=== PATIENT | female | born 1950 | race Caucasian/White ===

== ENCOUNTER 2016-12-06 19:56 | Emergency (ER) | payer MEDICARE, BC ==
[2016-12-06] MEDS ORDERED: NS 0.9% 1000 ML* 1,000 ML IV SCH (20:30)
[2016-12-06] MEDS ORDERED: Nitroglycerin TAB 0.4 MG* 0.4 MG TAB SL ONE (20:46)
[2016-12-06] MEDS ORDERED: Aspirin Low Dose CHEW TAB* 81 MG PO ONE (20:46)
[2016-12-06 20:47] LABS: Hematocrit 40 % (35-47); Hemoglobin 13.5 g/dl (12.0-16.0); Mean Corpuscular HGB Conc 34 g/dl (31-36); Mean Corpuscular Hemoglobin 30 pg (27-31); Mean Corpuscular Volume 88 fL (80-97); Mean Platelet Volume 8 um3 (7.4-10.4); Red Blood Count 4.58 10^6/ul (4.0-5.4); Red Cell Distribution Width 13 % (10.5-15); White Blood Count 7.3 10^3/ul (3.5-10.8)
--- NOTE | 2016-12-06 20:58 | RAD ---
INDICATION: Chest pain COMPARISON: December 28, 2014 TECHNIQUE: An AP portable view obtained at 2056 hours is submitted. FINDINGS: Bones/Soft Tissues: There are no acute bony findings. Cardiomediastinal: The cardiomediastinal silhouette is normal. Lungs: There are no infiltrates. Pleura: There are no pleural effusions. Other: None IMPRESSION: NO ACTIVE DISEASE.
[2016-12-06 21:01] LABS: Albumin 4.1 g/dL (3.2-5.2); BUN/Creatinine Ratio 25.4 (8-20); C Reactive Protein 1.06 mg/L (< 5.00); Calcium 9.2 mg/dL (8.6-10.3); EGFR African American 105.3 (>60); EGFR Non-African American 81.9 (>60); Globulin 2.1 g/dL (2-4); Magnesium 2.2 mg/dL (1.9-2.7); Potassium 3.8 mmol/L (3.5-5.0); Total Bilirubin 0.5 mg/dL (0.2-1.0); Total Protein 6.2 g/dL (6.4-8.9)
[2016-12-06 21:14] LABS: TSH (Thyroid Stimulating Horm) 2.23 mcIU/mL (0.34-5.60)
[2016-12-06] MEDS ORDERED: Iohexol 350* (CONTRAST) 500 ML MDV IV ONE (22:04)
[2016-12-06] MEDS ORDERED: Ketorolac INJ* 30 MG/ML 1 ML VIAL IV ONE (23:22)
--- NOTE | 2016-12-07 00:37 | ED ---
Tye Warner Nikita, scribed for Vivek Fonseca MD on 12/06/16 at 2046 . HPI Chest Pain - HPI Summary HPI Summary: This patient is a 66 year old F presenting to ED with a chief complaint of left- sided CP since 0700. The CC is described as constant, non-radiating, and squeezing. Pt reports that the pain seems to be like a band across the L side of her chest. The patient rates the pain 7/10 in severity at its worse. Symptoms aggravated by movement, palpation, and inspiration. Symptoms alleviated by nothing (took Aleve to no relief). Patient denies abdominal pain, nausea, vomiting, SOB, diaphoresis, and swelling. Pt denies recent sickness. Pt believes that the pain is muscular. PMHx of HTN. Denies Hx of HLD. - History of Current Complaint Chief Complaint: EDChestPainROMI Time Seen by Provider: 12/06/16 20:28 Hx Obtained From: Patient Onset/Duration: Started Hours Ago - 0700, Still Present Timing: Constant Initial Severity: Moderate Current Severity: Moderate Pain Intensity: 7 Pain Scale Used: 0-10 Numeric Chest Pain Location: Discrete at: - L sided Chest Pain Radiates: No Character: Pressure/Squeezing Aggravating Factor(s): Movement, Other: - palpation and inspiration Alleviating Factor(s): Nothing - took Aleve to no relief Associated Signs and Symptoms: Positive: Other: - Patient denies abdominal pain , nausea, vomiting, SOB, diaphoresis, and swelling. - Allergy/Home Medications Allergies/Adverse Reactions: Allergies Allergy/AdvReac Type Severity Reaction Status Date / Time Acetaminophen [From Percocet] AdvReac Intermediate Vomiting Verified 08/18/16 12 :54 Meperidine [From Demerol HCl] AdvReac Intermediate Vomiting Verified 08/18/16 12 :54 Oxycodone [From Percocet] AdvReac Intermediate Vomiting Verified 08/18/16 12:54 PMH/Surg Hx/FS Hx/Imm Hx Endocrine/Hematology History: Reports: Other Endocrine/Hematological Disorders - NEGATIVE: HLD Cardiovascular History: Reports: Hx Hypertension Denies: Hx Coronary Artery Disease GI History: Reports: Hx Gastroesophageal Reflux Disease Infectious Disease History: No Infectious Disease History: Denies: History Other Infectious Disease, Traveled Outside the [place] in Last 30 Days - Family History Known Family History: Positive: Hypertension, Diabetes - Social History Alcohol Use: Occasionally Substance Use Type: Reports: None Smoking Status (MU): Never Smoked Tobacco Review of Systems Negative: Skin Diaphoresis Positive: Chest Pain - L sided Negative: Shortness Of Breath Negative: Abdominal Pain, Vomiting, Nausea Positive: Other - swelling All Other Systems Reviewed And Are Negative: Yes Physical Exam - Summary Physical Exam Summary: General: well-appearing, no pain distress Skin: warm, color reflects adequate perfusion, dry Head: normal Eyes: EOMI, MAGO ENT: normal Neck: supple, nontender Respiratory: CTA, breath sounds present Cardiovascular: RRR Abdomen: soft, nontender Bowel: present Musculoskeletal: strength/ROM intact, mildly tender on L sternal border Neurological: normal, sensory/motor intact, A&O x3 Psychological: affect/mood appropriate Triage Information Reviewed: Yes Vital Signs On Initial Exam: Initial Vitals Temp Pulse Resp BP Pulse Ox 98.6 F 76 20 151/87 96 12/06/16 20:00 12/06/16 20:00 12/06/16 20:00 12/06/16 20:00 12/06/16 20:00 Vital Signs Reviewed: Yes - Maicol Coma Scale Coma Scale Total: 15 Diagnostics - Vital Signs Vital Signs Temp Pulse Resp BP Pulse Ox 12/06/16 20:31 68 11 134/87 96 12/06/16 20:26 71 11 98 12/06/16 20:22 98.9 F 73 16 134/87 96 12/06/16 20:00 98.6 F 76 20 151/87 96 - Laboratory Lab Results: Lab Results 12/06/16 12/06/16 12/06/16 Range/Units 20:36 20:36 20:36 WBC (3.5-10.8) 10^3/ul RBC (4.0-5.4) 10^6/ul Hgb (12.0-16.0) g/dl Hct (35-47) % MCV (80-97) fL MCH (27-31) pg MCHC (31-36) g/dl RDW (10.5-15) % Plt Count (150-450) 10^3/ul MPV (7.4-10.4) um3 Neut % (Auto) (38-83) % Lymph % (Auto) (25-47) % Wright % (Auto) (1-9) % Eos % (Auto) (0-6) % Baso % (Auto) (0-2) % Absolute Neuts (auto) (1.5-7.7) 10^3/ul Absolute Lymphs (auto) (1.0-4.8) 10^3/ul Absolute Monos (auto) (0-0.8) 10^3/ul Absolute Eos (auto) (0-0.6) 10^3/ul Absolute Basos (auto) (0-0.2) 10^3/ul Absolute Nucleated RBC 10^3/ul Nucleated RBC % INR (Anticoag Therapy) 0.90 (0.89-1.11) APTT 30.2 (26.0-36.3) seconds D-Dimer, Quantitative < 200 (Less Than 230) ng/mL Sodium 138 (133-145) mmol/L Potassium 3.8 (3.5-5.0) mmol/L Chloride 105 (101-111) mmol/L Carbon Dioxide 27 (22-32) mmol/L Anion Gap 6 (2-11) mmol/L BUN 18 (6-24) mg/dL Creatinine 0.71 (0.51-0.95) mg/dL Est GFR ( Amer) 105.3 (>60) Est GFR (Non-Af Amer) 81.9 (>60) BUN/Creatinine Ratio 25.4 H (8-20) Glucose 118 H (70-100) mg/dL Lactic Acid (0.5-2.0) mmol/L Calcium 9.2 (8.6-10.3) mg/dL Magnesium 2.2 (1.9-2.7) mg/dL Total Bilirubin 0.50 (0.2-1.0) mg/dL AST 21 (13-39) U/L ALT 18 (7-52) U/L Alkaline Phosphatase 78 (34-104) U/L Total Creatine Kinase 102 (10-223) U/L CK-MB (CK-2) 2.9 (0.6-6.3) ng/mL Troponin I 0.00 (<0.04) ng/mL C-Reactive Protein 1.06 (< 5.00) mg/L B-Natriuretic Peptide 26 ( - 100) pg/mL Total Protein 6.2 L (6.4-8.9) g/dL Albumin 4.1 (3.2-5.2) g/dL Globulin 2.1 (2-4) g/dL Albumin/Globulin Ratio 2.0 (1-3) Lipase 19 (11.0-82.0) U/L TSH 2.23 (0.34-5.60) mcIU/mL 12/06/16 12/06/16 Range/Units 20:36 20:36 WBC 7.3 (3.5-10.8) 10^3/ul RBC 4.58 (4.0-5.4) 10^6/ul Hgb 13.5 (12.0-16.0) g/dl Hct 40 (35-47) % MCV 88 (80-97) fL MCH 30 (27-31) pg MCHC 34 (31-36) g/dl RDW 13 (10.5-15) % Plt Count 249 (150-450) 10^3/ul MPV 8 (7.4-10.4) um3 Neut % (Auto) 59.3 (38-83) % Lymph % (Auto) 26.2 (25-47) % Wright % (Auto) 9.1 H (1-9) % Eos % (Auto) 4.8 (0-6) % Baso % (Auto) 0.6 (0-2) % Absolute Neuts (auto) 4.3 (1.5-7.7) 10^3/ul Absolute Lymphs (auto) 1.9 (1.0-4.8) 10^3/ul Absolute Monos (auto) 0.7 (0-0.8) 10^3/ul Absolute Eos (auto) 0.4 (0-0.6) 10^3/ul Absolute Basos (auto) 0 (0-0.2) 10^3/ul Absolute Nucleated RBC 0 10^3/ul Nucleated RBC % 0 INR (Anticoag Therapy) (0.89-1.11) APTT (26.0-36.3) seconds D-Dimer, Quantitative (Less Than 230) ng/mL Sodium (133-145) mmol/L Potassium (3.5-5.0) mmol/L Chloride (101-111) mmol/L Carbon Dioxide (22-32) mmol/L Anion Gap (2-11) mmol/L BUN (6-24) mg/dL Creatinine (0.51-0.95) mg/dL Est GFR ( Amer) (>60) Est GFR (Non-Af Amer) (>60) BUN/Creatinine Ratio (8-20) Glucose (70-100) mg/dL Lactic Acid 1.3 (0.5-2.0) mmol/L Calcium (8.6-10.3) mg/dL Magnesium (1.9-2.7) mg/dL Total Bilirubin (0.2-1.0) mg/dL AST (13-39) U/L ALT (7-52) U/L Alkaline Phosphatase (34-104) U/L Total Creatine Kinase (10-223) U/L CK-MB (CK-2) (0.6-6.3) ng/mL Troponin I (<0.04) ng/mL C-Reactive Protein (< 5.00) mg/L B-Natriuretic Peptide ( - 100) pg/mL Total Protein (6.4-8.9) g/dL Albumin (3.2-5.2) g/dL Globulin (2-4) g/dL Albumin/Globulin Ratio (1-3) Lipase (11.0-82.0) U/L TSH (0.34-5.60) mcIU/mL Result Diagrams: 12/06/16 20:36 12/06/16 20:36 Lab Statement: Any lab studies that have been ordered have been reviewed, and results considered in the medical decision making process. - Radiology CXR Radiology Interpretation Completed By: Radiologist - No active disease. ED physician has reviewed this radiology report and agrees. - CT Chest CTA CT Interpretation Completed By: Radiologist - No pulmonary embolism. Slightly ectatic ascending aorta, 3.9 cm diameter. No aortic dissection or aneurysm. No pneumonia or pleural effusions. ED physician has reviewed this radiology report and agrees. - EKG 2005 Cardiac Rate: NL - 65 bpm EKG Rhythm: Sinus Rhythm ST Segment: Normal EKG Interpretation: RBBB, no activity Re-Evaluation - Re-Evaluation First Eval Re-Evaluation Time: 21:37 Comment: Discussed with pt about CXR. Second Eval Re-Evaluation Time: 23:19 Comment: Discussed with pt about CTA chest. Pt will be given Toradol for pain. Pt wants water and ice. Chest Pain Course/Dx - Course Course Of Treatment: DISCUSSED RESULTS WITH PATIENT/. PAIN STARTED IN AM , TROPONIN NEGATIVE GREATER THAN 6 HOURS AFTER ONSET. CTA SHOW ECTATIC AORTA WITHOUT DISSECTION. NTG DID NOT HELP THE PAIN. PAIN DECREASED WITH TORADOL. DISCUSSED ADMISSION FOR CHEST PAIN AND STRESS TEST. PATIENT DECLINED ADMISSION. WILL TREAT WITH IBUPROFEN AND F/U PMD; WILL RETURN IF WORSE OF QUESTIONS OR CONCERNS. Assessment/Plan: This patient is a 66 year old F presenting to ED with a chief complaint of left-sided CP since 0700. The CC is described as constant, non- radiating, and squeezing. Pt reports that the pain seems to be like a band across the L side of her chest. The patient rates the pain 7/10 in severity at its worse. Symptoms aggravated by movement, palpation, and inspiration. Symptoms alleviated by nothing (took Aleve to no relief). Patient denies abdominal pain, nausea, vomiting, SOB, diaphoresis, and swelling. Pt denies recent sickness. Pt believes that the pain is muscular. PMHx of HTN. Denies Hx of HLD. CXR reveals no active disease. CTA chest reveals no PE, no aortic dissection or aneurysm, no pneumonia or pleural effusions; slightly ectatic ascending aorta, 3.9 cm diameter. ED physician has reviewed this radiology report and agrees. EKG reveals NSR, normal ST, RBBB, and no activity. In the ED course, pt was given fluids, ASA, and NTG. Pt will be _. Pt is agreeable with this plan. - Diagnoses Provider Diagnoses: Chest pain, Ectatic thoracic aorta Discharge - Discharge Plan Condition: Stable Disposition: HOME Patient Education Materials: Chest Pain (ED) Referrals: Lisa Ohara MD [Primary Care Provider] - Additional Instructions: FOLLOW UP WITH YOUR DOCTOR FOR YOUR CHEST PAIN AND ECTATIC AORTA. TAKE IBUPROFEN 600MG EVERY 6 HOURS NEEDED. RETURN TO THE EMERGENCY DEPARTMENT FOR ANY WORSENING OF YOUR CONDITION; PAIN, FEVER, SHORTNESS OF BREATH, YOU FEEL ILL OR QUESTIONS OR CONCERNS. The documentation as recorded by the Tye henson Nikita accurately reflects the service I personally performed and the decisions made by me, Vivek Fonseca MD.
[2016-12-07 00:41] VITALS: BP 111/69
--- NOTE | 2016-12-08 10:58 | RAD ---
HISTORY: Left-sided chest pain COMPARISONS: None TECHNIQUE: Multiple contiguous axial CT scans of the chest were obtained after the administration of nonionic intravenous contrast, timed to the systemic arterial phase of contrast enhancement.. Coronal and sagittal multiplanar reformations are also submitted for review. FINDINGS: NECK AND THYROID: The lower neck and thyroid are unremarkable. CHEST WALL: There is no lower cervical, axillary, or supraclavicular lymphadenopathy by size criteria. HEART AND PERICARDIUM: The heart is unremarkable. AORTA AND PULMONARY VASCULATURE: There is mild ectasia of ascending thoracic aorta measuring up to 3.9 cm in transverse diameter with sparing of the aortic root. There is no pulmonary arterial filling defect to suggest pulmonary embolism. There is no linear filling defect within the aorta to suggest aortic dissection. MEDIASTINUM: There is no mediastinal lymphadenopathy by size criteria. CARON: There is no hilar lymphadenopathy by size criteria. AIRWAY AND ESOPHAGUS: The airway is unremarkable, without endobronchial filling defect. The esophagus is grossly normal. LUNG PARENCHYMA: There is minimal dependent atelectasis of the lung bases bilaterally. PLEURA: No pleural abnormalities are noted. UPPER ABDOMEN: The upper abdomen is unremarkable. BONES AND SOFT TISSUES: No bone or soft tissue abnormalities are noted. OTHER: None. IMPRESSION: 1. NO AORTIC DISSECTION. 2. MILD ECTASIA OF THE ASCENDING THORACIC AORTA. 3. NO PULMONARY ARTERIAL FILLING DEFECT TO SUGGEST PULMONARY EMBOLISM
== END 2016-12-07 00:40 | disposition home or self-care (01) ==
LOC: ED 19:56
DX: I77.810 Thoracic aortic ectasia (principal); R07.9 Chest pain, unspecified
CPT/HCPCS: 36415; 71010; 71275; 80053; 82550; 82553; 83605; 83690; 83735; 83880; 84443; 84484; 85025; 85379; 85610; 85730; 86140; 93005; 96374; 99283; A9270-GY; J1885; Q9967

== ENCOUNTER 2017-09-27 09:17 | Emergency (ER) | payer MEDICARE, BC ==
[2017-09-27 09:45] VITALS: BP 131/71
--- OUTSIDE RECORDS SUMMARY | 2017-09-27 10:12 | XMS REPORT ---
:1950 External Reference #:[id number] Author Organization [facility] Address [address] [place] [address] Phone [phone] Care Team Providers Name Role Phone Lisa Ohara M.D. Care Team Information Diesel Engine Assembler Unavailable Lisa Ohara M.D. Primary Care Physician Unavailable Payers Type Date Identification Numbers Payment Provider Subscriber Medicare Primary Effective: Policy Number: Medicare [place] Priyanka Esteban 2013 [id number] PayID: [id number] [address] [place] [address] Medigap Part B Effective: Policy Number: Out Of Area Priyanka Esteban 2013 [id number] [facility] Group Number: [id number] [address] [address] Group Name: MDCR Supplement Plan F PAUL Angel [id number] PayID: [id number] Problems Date Description Provider Status Onset: 12/25/2012 Disorder of rectum Sen Mendiola M.D. Active Onset: 08/09/2014 Essential hypertension Mahendra Kamara M.D. Active Onset: 08/09/2014 Nonruptured cerebral aneurysm Mahendra Kamara M.D. Active Onset: 08/09/2014 Migraine Mahendra Kamara M.D. Active Onset: 01/14/2015 Anxiety state Lisa Ohara M.D. 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 to introitus daily x 2 weeks, then two times weekly ongoing Propranolol HCL ER 12/13 Active Caps ER 80mg 90cap 1 po qd I10 Mahendra Kamara, 24HR s M.D. Norvasc Active Tablets 10mg 1 by mouth I10 Unknown /0000 every day Amitriptyline HCL Active Tablets 10mg 1 po qd 346.90 Unknown /0000 Macrobid Active Capsules 100mg 1 Cap Unknown /0000 After Intercours e Cipro 08/31 Hx Tablets 250mg 6tabs 1 tab twice a [place], - day x 3 M.D. Cipro 12/18 Hx Tablets 500mg 14tab 1 by mouth R10.30 Fauzia /2015 s twice a [facility], - day for 7 PREP COOK Bactrim DS 12/18 Hx Tablets 800-160mg 20tab 1 by mouth José Luis A. /2015 s twice a [place], - day M.D. 09/02 Elbow 08/14 Hx Misc 1unit with M77.12 [place] Support/Neoprene /2015 s elizabeth Conrad, Small - cushion, [facility] 12/18 ind: lateral epicondyli tis Cyclobenzaprine 01/14 Hx Tablets 5mg 60tab 1/2-1 tab M25.552 s by mouth [place], - twicea day M.D. 08/14 as needed Buspirone HCL / Hx Tablets 7.5mg 60tab 1 by mouth F41.8 s twice a [place], - day prn M.D. 08/14 Escitalopram 01/02 Hx Tablets 5mg 30tab 1 by mouth F41.1 Mahendra Kamara, s every day M.D. - 01/14 Bactrim DS 12/12 Hx Tablets 800-160mg 14tab 1 po bid Mahendra Kamara, s x7 days M.D. - 08/09 Nystatin/Triamcino 12/25 Hx Cream 503952-9. 30gm apply to 569.49 Sen Chavez errol 1Unit/GM- affected [place], - % area(s) M.D. 10/04 two times /2013 a day Hydrochlorothiazid 12/13 Hx Tablets 25mg 90tab 1/2 po qd 401.9 Mahendra Kamara, s M.D. - 08/09 Ambien 12/13 Hx Tablets 5mg 30tab 1 by mouth G47.00 s as needed MIRIAM Lang - for sleep 08/30 Immunizations CPT Code Status Date Vaccine Lot # [id number] Given 01/08/2014 Split Influenza Medicare: Fluzone di634av [id number] Given 12/13/2012 DO Not Use Split Influenza Virus Vaccine [id number] Vital Signs Date Vital Result Comment 08/30/2017 BP Systolic 120 mmHg BP Diastolic 86 mmHg Heart Rate 64 /min Body Temperature 98.0 F Respiratory Rate 16 /min Height 66 inches 5'6" Weight 135.00 lb BMI (Body Mass Index) 21.8 kg/m2 12/19/2015 BP Systolic 130 mmHg BP Diastolic 82 mmHg Heart Rate 80 /min Body Temperature 98.7 F Respiratory Rate 16 /min Height 66 inches 5'6" Weight 128.00 lb BMI (Body Mass Index) 20.7 kg/m2 08/15/2015 BP Systolic 130 mmHg BP Diastolic 90 mmHg Heart Rate 64 /min Body Temperature 98.9 F Respiratory Rate 16 /min Height 66 inches 5'6" Weight 135.00 lb BMI (Body Mass Index) 21.8 kg/m2 01/14/2015 BP Systolic 140 mmHg BP Diastolic 100 mmHg Heart Rate 76 /min Body Temperature 98.3 F Respiratory Rate 16 /min Height 66 inches 5'6" Weight 132.00 lb BMI (Body Mass Index) 21.3 kg/m2 01/07/2015 BP Systolic 140 mmHg BP Diastolic 86 mmHg Heart Rate 72 /min Body Temperature 98.4 F Respiratory Rate 16 /min Weight 126.50 lb 01/02/2015 BP Systolic 128 mmHg BP Diastolic 90 mmHg Heart Rate 66 /min Body Temperature 98.1 F Respiratory Rate 16 /min Weight 126.50 lb 12/26/2014 BP Systolic 110 mmHg BP Diastolic 70 mmHg Heart Rate 60 /min Body Temperature 98.2 F Respiratory Rate 18 /min Height 66 inches 5'6" Weight 128.00 lb BMI (Body Mass Index) 20.7 kg/m2 12/12/2014 BP Systolic 142 mmHg BP Diastolic 90 mmHg Heart Rate 72 /min Body Temperature 98.0 F Respiratory Rate 16 /min Height 66 inches 5'6" Weight 130.00 lb BMI (Body Mass Index) 21.0 kg/m2 11/13/2014 BP Systolic 140 mmHg BP Diastolic 110 mmHg Heart Rate 72 /min Body Temperature 98.6 F Height 66 inches 5'6" Weight 129.00 lb BMI (Body Mass Index) 20.8 kg/m2 09/11/2014 BP Systolic 126 mmHg BP Diastolic 74 mmHg Heart Rate 66 /min Body Temperature 98.4 F Respiratory Rate 16 /min Height 66 inches 5'6" Weight 131.00 lb BMI (Body Mass Index) 21.1 kg/m2 08/09/2014 BP Systolic 140 mmHg BP Diastolic 96 mmHg Heart Rate 68 /min Body Temperature 97.9 F Respiratory Rate 16 /min Height 66 inches 5'6" Weight 130.00 lb BMI (Body Mass Index) 21.0 kg/m2 10/15/2013 BP Systolic 130 mmHg BP Diastolic 90 mmHg Heart Rate 60 /min Body Temperature 98.4 F Respiratory Rate 14 /min Height 66 inches 5'6" Weight 129.00 lb BMI (Body Mass Index) 20.8 kg/m2 10/05/2013 BP Systolic 150 mmHg BP Diastolic 98 mmHg Heart Rate 72 /min Body Temperature 97.1 F Height 66 inches 5'6" 09/17/2013 BP Systolic 152 mmHg BP Diastolic 110 mmHg Heart Rate 68 /min Body Temperature 98.3 F Respiratory Rate 16 /min Height 66 inches 5'6" Weight 129.50 lb BMI (Body Mass Index) 20.9 kg/m2 12/25/2012 BP Systolic 136 mmHg BP Diastolic 98 mmHg Heart Rate 60 /min Body Temperature 98.8 F Height 66 inches 5'6" Weight 132.00 lb BMI (Body Mass Index) 21.3 kg/m2 12/13/2012 BP Systolic 126 mmHg BP Diastolic 80 mmHg Heart Rate 66 /min Body Temperature 98.2 F Respiratory Rate 16 /min Height 66 inches 5'6" Weight 132.00 lb BMI (Body Mass Index) 21.3 kg/m2 Results Test Date Test Result H/L Range Note Laboratory test finding 12/06/2016 Partial Thrombo 30.2 seconds 26.0- 36.3 Time PTT D Dimer Quantitative < 200 ng/mL Less Than 230 1 Inr/Protime 12/06/2016 Inr 0.90 0.89-1.11 Laboratory test finding 12/06/2016 TSH (Thyroid Stim Horm) 2.23 mcIU/mL 0.34-5.60 B-Type Natriuretic Peptide BNP 26 pg/mL 2 Laboratory test finding 12/06/2016 Lactic Acid 1.3 mmol/L 0.5-2.0 3 CBC Auto Diff 12/06/2016 White Blood Count 7.3 10^3/uL 3.5-10.8 Red Blood Count 4.58 10^6/uL 4.0-5.4 Hemoglobin 13.5 g/dL 12.0-16.0 Hematocrit 40 % 35-47 Mean Corpuscular Volume 88 fL 80-97 Mean Corpuscular Hemoglobin 30 pg 27-31 Mean Corpuscular HGB Conc 34 g/dL 31-36 Red Cell Distribution Width 13 % 10.5-15 Platelet Count 249 10^3/uL 150-450 Mean Platelet Volume 8 um3 7.4-10.4 Abs Neutrophils 4.3 10^3/uL 1.5-7.7 Abs Lymphocytes 1.9 10^3/uL 1.0-4.8 Abs Monocytes 0.7 10^3/uL 0-0.8 Abs Eosinophils 0.4 10^3/uL 0-0.6 Abs Basophils 0 10^3/uL 0-0.2 Abs Nucleated RBC 0 10^3/uL Granulocyte % 59.3 % 38-83 Lymphocyte % 26.2 % 25-47 Monocyte % 9.1 % High 1-9 Eosinophil % 4.8 % 0-6 Basophil % 0.6 % 0-2 Nucleated Red Blood Cells % 0 CKMB 12/06/2016 CKMB ng/mL 2.9 ng/mL 0.6-6.3 Laboratory test finding 12/06/2016 Magnesium 2.2 mg/dL 1.9-2.7 Lipase 19 U/L 11.0-82.0 Creatine Kinase(CK) 102 U/L 10-223 C Reactive Protein 1.06 mg/L < 5.00 4 Troponin I 0.00 ng/mL <0.04 Comp Metabolic Panel 12/06/2016 Sodium 138 mmol/L 133-145 Potassium 3.8 mmol/L 3.5-5.0 Chloride 105 mmol/L 101-111 Co2 Carbon Dioxide 27 mmol/L 22-32 Anion Gap 6 mmol/L 2-11 Glucose 118 mg/dL High 70-100 Blood Urea Nitrogen 18 mg/dL 6-24 Creatinine 0.71 mg/dL 0.51-0.95 BUN/Creatinine Ratio 25.4 High 8-20 Calcium 9.2 mg/dL 8.6-10.3 Total Protein 6.2 g/dL Low 6.4-8.9 Albumin 4.1 g/dL 3.2-5.2 Globulin 2.1 g/dL 2-4 Albumin/Globulin Ratio 2.0 1-3 Total Bilirubin 0.50 mg/dL 0.2-1.0 Alkaline Phosphatase 78 U/L 34-104 Alt 18 U/L 7-52 Ast 21 U/L 13-39 Egfr Non- 81.9 >60 Egfr 105.3 >60 5 Ua - Micro (Fma) 08/31/2016 Appearance clear Color yellow Glucose, Urine (Fma/CMC/CTX) neg Bilirubin neg Ketones neg SP Grav 1.010 Blood neg PH 7.0 Protein neg Urobil 0.2 Nitrite neg Leukocytes (Fma/CMC/Centrex) trace WBC (Fma,Centrex) 2-3 Epith few /Lpf Bacteria trace /Hpf Urine Culture Routine 08/31/2016 Urine Culture, Routine Final report 6 , 7 Result 1 No growth 6, 8 Laboratory test finding 08/18/2016 Surgical Pathology SEE RESULT BELOW 9 Urine Culture Routine 12/19/2015 Urine Culture, Routine Final report 10 Result 1 See Comment: 11 Antimicrobial Susceptibility See Comment: 12 Laboratory test finding 12/19/2015 PDF [id number] SEE IMAGE Comprehensive Metabolic Prof 12/19/2015 Sodium 141 mEq/L 134-149 Potassium 4.7 mEq/L 3.6-5.5 Chloride 101 mEq/L 94-112 Carbon Dioxide 27 mEq/L 21-32 Glucose 84 mg/dL 70-105 BUN 9 mg/dL 6-26 Creatinine 0.9 mg/dL 0.6-1.4 BUN/Creat Ratio 10.0 CALC 8.0-36.0 Calcium 9.4 mg/dL 8.6-10.2 Total Protein 6.4 g/dL 6.4-8.3 Albumin 4.4 g/dL 3.8-5.5 Globulin 2.0 g/dL 2.0-4.8 A/G Ratio 2.2 CALC 0.6-2.3 Alk. Phosphatase 90 U/L 30-110 Alt (SGPT) 31 U/L 7-35 Ast (Sgot) 29 U/L 5-34 Total Bilirubin 0.5 mg/dL 0.2-1.3 GFR Non- >60 ml/min/1.73m^ >=60 GFR >60 ml/min/1.73m^ >=60 Complete Blood Count 12/19/2015 WBC 6.0 x10^3/UL 3.6-9.6 RBC 4.71 x10^6/UL 3.90-5.70 HGB 14.0 g/dL 12.1-17.2 HCT 43 % 36-50 MCV 90.0 fL 82.2-97.4 MCH 29.8 pg 27.6-33.3 MCHC 33.0 g/dL 33.0-35.5 RDW 13.5 % 11.6-13.7 PLT 249 x10^3/UL 150-400 MPV 8.0 fL 7.4-10.4 Gran # 4.8 x10^3/UL 1.5-7.2 Lymph# 0.9 x10^3/UL 0.7-4.9 [place]# 0.3 x10^3/UL 0.1-0.9 Gran % 78.4 % High 42.2-75.2 Lymph % 16.3 % Low 20.5-51.1 [place]% 5.3 % 1.7-9.3 Ua - Micro (Fma) 12/19/2015 Appearance yellow Color clear Glucose, Urine (Fma/CMC/CTX) neg Bilirubin neg Ketones neg SP Grav <=1.005 Blood neg PH 5.0 Protein neg Urobil 0.2 Nitrite pos Leukocytes (Fma/CMC/Centrex) mod Hyaline - /Lpf Granular - /Lpf WBC (Fma,Centrex) >75 RBC 1-2 Mucus (Fma/CBC/Centrex) - /Lpf Epith occ /Lpf Bacteria 4+ /Hpf Amorphous (Fma/CMC/Centrex) - /Lpf Crystals, Fluid (Fma/CMC/CTX) - Z#Comments - CBC Auto Diff 12/28/2014 White Blood Count 10.6 10^3/uL 4.8-10.8 Red Blood Count 4.76 10^6/uL 4.0-5.4 Hemoglobin 14.5 g/dL 12.0-16.0 Hematocrit 44 % 35-47 Mean Corpuscular Volume 92 fL 80-97 Mean Corpuscular Hemoglobin 31 pg 27-31 Mean Corpuscular HGB Conc 33 g/dL 31-36 Red Cell Distribution Width 13 % 10.5-15 Platelet Count 241 10^3/uL 150-450 Mean Platelet Volume 9 um3 7.4-10.4 Abs Neutrophils 8.3 10^3/uL High 1.5-7.7 Abs Lymphocytes 1.3 10^3/uL 1.0-4.8 Abs Monocytes 0.8 10^3/uL 0-0.8 Abs Eosinophils 0.1 10^3/uL 0-0.6 Abs Basophils 0.1 10^3/uL 0-0.2 Abs Nucleated RBC 0.01 10^3/uL Granulocyte % 78.2 % 38-83 Lymphocyte % 12.0 % Low 25-47 Monocyte % 8.0 % 1-9 Eosinophil % 1.3 % 0-6 Basophil % 0.5 % 0-2 Nucleated Red Blood Cells % 0 Comp Metabolic Panel 12/28/2014 Sodium 138 mmol/L 133-145 Potassium 4.2 mmol/L 3.5-5.0 Chloride 102 mmol/L 101-111 Co2 Carbon Dioxide 31 mmol/L 22-32 Anion Gap 5 mmol/L 2-11 Glucose 90 mg/dL 70-100 Blood Urea Nitrogen 16 mg/dL 6-24 Creatinine 0.84 mg/dL 0.51-0.95 BUN/Creatinine Ratio 19.0 8-20 Calcium 9.5 mg/dL 8.6-10.3 Total Protein 6.4 g/dL 6.4-8.9 Albumin 4.5 g/dL 3.2-5.2 Globulin 1.9 g/dL Low 2-4 Albumin/Globulin Ratio 2.4 1-3 Total Bilirubin 0.60 mg/dL 0.2-1.0 Alkaline Phosphatase 83 U/L 34-104 Alt 17 U/L 7-52 Ast 19 U/L 13-39 Egfr Non- 67.8 >60 Egfr 87.2 >60 13 Inr/Protime 12/28/2014 Inr 0.85 0.78-1.07 Laboratory test finding 12/28/2014 Partial Thrombo Time 34.3 seconds 26.0 -36.3 PTT Rapid Influenza A & B Antigen SEE RESULT BELOW 14 Laboratory test finding 12/05/2014 Troponin I 0.00 ng/mL <0.03 15 CBC Auto Diff 12/05/2014 White Blood Count 6.7 10^3/uL 4.8-10.8 Red Blood Count 5.26 10^6/uL 4.0-5.4 Hemoglobin 15.9 g/dL 12.0-16.0 Hematocrit 48 % High 35-47 Mean Corpuscular Volume 91 fL 80-97 Mean Corpuscular Hemoglobin 30 pg 27-31 Mean Corpuscular HGB Conc 33 g/dL 31-36 Red Cell Distribution Width 13 % 10.5-15 Platelet Count 255 10^3/uL 150-450 Mean Platelet Volume 8 um3 7.4-10.4 Abs Neutrophils 4.4 10^3/uL 1.5-7.7 Abs Lymphocytes 1.5 10^3/uL 1.0-4.8 Abs Monocytes 0.6 10^3/uL 0-0.8 Abs Eosinophils 0.2 10^3/uL 0-0.6 Abs Basophils 0.1 10^3/uL 0-0.2 Abs Nucleated RBC 0 10^3/uL Granulocyte % 65.4 % 38-83 Lymphocyte % 22.2 % Low 25-47 Monocyte % 8.5 % 1-9 Eosinophil % 3.0 % 0-6 Basophil % 0.9 % 0-2 Nucleated Red Blood Cells % 0 Comp Metabolic Panel 12/05/2014 Sodium 140 mmol/L 133-145 Potassium 3.5 mmol/L 3.5-5.0 Chloride 106 mmol/L 101-111 Co2 Carbon Dioxide 29 mmol/L 22-32 Anion Gap 5 mmol/L 2-11 Glucose 93 mg/dL 70-100 Blood Urea Nitrogen 12 mg/dL 6-24 Creatinine 0.75 mg/dL 0.51-0.95 BUN/Creatinine Ratio 16.0 8-20 Calcium 9.4 mg/dL 8.6-10.3 Total Protein 7.0 g/dL 6.4-8.9 Albumin 4.8 g/dL 3.2-5.2 Globulin 2.2 g/dL 2-4 Albumin/Globulin Ratio 2.2 1-3 Total Bilirubin 0.50 mg/dL 0.2-1.0 Alkaline Phosphatase 92 U/L 34-104 Alt 26 U/L 7-52 Ast 25 U/L 13-39 Egfr Non- 77.3 >60 Egfr 99.4 >60 16 Laboratory test finding 12/05/2014 Troponin I 0.00 ng/mL <0.03 17 1 Please note: The following may produce a false positive D Dimer test: - Rheumatoid factor greater than 60 IU/ml - Plasma hemoglobin greater than 0.05 gm/dl - Bilirubin greater than 50 mg/dl - Lipids greater than 1000 mg/dl - FDP greater than 20 ug/ml 2 >100 to <200 pg/mL: likely compensated congestive heart failure (CHF) 200 to 400 pg/mL: likely moderate CHF >400 pg/mL: likely moderate to severe CHF 3 [facility] Severe Sepsis and Septic Shock Management Bundle Measure requires all lactic acids initially measuring >2.0 mmol/L be repeated. 4 Acute inflammation: >10.00 5 Because ethnic data is not always readily available, this report includes an eGFR for both -Americans and non- Americans. The National Kidney Disease Education Program (NKDEP) does not endorse the use of the MDRD equation for patients that are not between the ages of 18 and 70, are , have extremes of body size, muscle mass, or nutritional status, or are non- or non-. According to the National Kidney Foundation, irrespective of diagnosis, the stage of the disease is based on the level of kidney function: Stage Description GFR(mL/min/1.73 m(2)) 1 Kidney damage with normal or decreased GFR 90 2 Kidney damage with mild decrease in GFR 60-89 3 Moderate decrease in GFR 30-59 4 Severe decrease in GFR 15-29 5 Kidney failure <15 (or dialysis) 6 SRC:urine 1 hernandez urine cs tube 7 Source of Specimen: urine 1 hernandez urine cs 8 Source of Specimen: urine 1 hernandez urine cs 9 SEE RESULT BELOW Name: PRIYANKA ESTEBAN : [address]: Lucas Carnes MD Acct: [id number] Unit: [id number] AGE: 66 Location: ENDO Re08/18/16 SEX: F Status: DEP REF SPEC: [id number] RONALDO: 08/18/1651 [facility] [address]: Lucas Carnes MD REQ: [id number] RECD: 08/18/16 STATUS: YUE COLBERT DR: Lisa Ohara MD _ ORDERED: LEVEL 4 FINAL DIAGNOSIS Colon, rectum, biopsy: -- Tubular adenoma. -- No high grade dysplasia or malignancy. CLINICAL HISTORY Family history - father POST-OPERATIVE DIAGNOSIS Colonoscopy into terminal ileum, prep good - small rectal poly removed, sigmoid diverticulosis. Conclusions/Plan: Small polyp removed GROSS DESCRIPTION The specimen is received in formalin labeled, Biopsy Rectal Polyp, and consists of a 0.4 x 0.3 x 0.2 cm speckled wright-pink irregular to polypoid soft tissue fragment which is entirely submitted in one cassette. Signed (signature on file) Silvano Boone MD [id number] END OF REPORT * ML=Testing performed at Main Lab DEPARTMENT OF PATHOLOGY, [address] [place] [address] Silvano Boone M.D. Director [facility] # [id number] 10 Source of Specimen: urine 1 hernandez urine vac 11 Source of Specimen: urine 1 hernandez urine vac Escherichia coli, identified by an automated biochemical system. Greater than 100,000 colony forming units per mL 12 Source of Specimen: urine 1 hernandez urine vac S=Susceptible; I=Intermediate; R=Resistant P=Positive; N=Negative MICS are expressed in micrograms per mL Antibiotic RSLT#1 RSLT#2 RSLT#3 RSLT#4 Amoxicillin/Clavulanic Acid S Ampicillin R Cefepime S Ceftriaxone S Cefuroxime S Cephalothin R Ciprofloxacin S Ertapenem S Gentamicin R Imipenem S Levofloxacin S Nitrofurantoin S Piperacillin R Tetracycline S Tobramycin I Trimethoprim/Sulfa R 13 Because ethnic data is not always readily available, this report includes an eGFR for both -Americans and non- Americans. The National Kidney Disease Education Program (NKDEP) does not endorse the use of the MDRD equation for patients that are not between the ages of 18 and 70, are , have extremes of body size, muscle mass, or nutritional status, or are non- or non-. According to the National Kidney Foundation, irrespective of diagnosis, the stage of the disease is based on the level of kidney function: Stage Description GFR(mL/min/1.73 m(2)) 1 Kidney damage with normal or decreased GFR 90 2 Kidney damage with mild decrease in GFR 60-89 3 Moderate decrease in GFR 30-59 4 Severe decrease in GFR 15-29 5 Kidney failure <15 (or dialysis) 14 SEE RESULT BELOW Name: PRIYANKA ESTEBAN : [address]: Lizabeth Lincoln Acct: [id number] Unit: [id number] AGE: 64 Location: [facility] Re12/28/14 SEX: F Status: DEP ER SPEC: [id number] RONALDO: 12/28/14-[address] [facility] [address]: Lelo BRAVO REQ: [id number] RECD: 12/29/14120 STATUS: DANIEL COLBERT DR: Rossana Giang MD _ SOURCE: [facility]: ORDERED: Rapid Flu A B Procedure Result Verified Site Rapid Influenza A B Antigen Final 12/29/14- 1318 ML Organism 1 Negative Influenza A B Antigen testing by enzyme immunoassay. Cell culture testing can be performed to confirm negative test results and to assist in detecting other viruses that can produce similar clinical symptoms. Please notify Microbiology Lab if further testing is desired. * ML - MAIN LAB ([facility]) . END OF REPORT * ML=Testing performed at Main Lab DEPARTMENT OF PATHOLOGY, [address] [place] [address] Silvano Boone M.D. Director [facility] # [id number] 15 Reference Range and Interpretation: TnI (ng/mL) Interpretation Less Than 0.03 ng/mL Not supportive of diagnosis of AR 0.03 - 0.50 ng/mL Indeterminate: suggest serial studies if clinically indicated. Greater than 0.5 ng/mL Consistent with diagnosis of AR 16 Because ethnic data is not always readily available, this report includes an eGFR for both -Americans and non- Americans. The National Kidney Disease Education Program (NKDEP) does not endorse the use of the MDRD equation for patients that are not between the ages of 18 and 70, are , have extremes of body size, muscle mass, or nutritional status, or are non- or non-. According to the National Kidney Foundation, irrespective of diagnosis, the stage of the disease is based on the level of kidney function: Stage Description GFR(mL/min/1.73 m(2)) 1 Kidney damage with normal or decreased GFR 90 2 Kidney damage with mild decrease in GFR 60-89 3 Moderate decrease in GFR 30-59 4 Severe decrease in GFR 15-29 5 Kidney failure <15 (or dialysis) 17 Reference Range and Interpretation: TnI (ng/mL) Interpretation Less Than 0.03 ng/mL Not supportive of diagnosis of AR 0.03 - 0.50 ng/mL Indeterminate: suggest serial studies if clinically indicated. Greater than 0.5 ng/mL Consistent with diagnosis of AR Procedures Date CPT Code Description Status Comment 03/28/2017 Mammogram Completed 03/28/2017 Bone Mineral Density Test Completed osteopenia 08/18/2016 Colonoscopy Completed Encounters Type Date Location Provider CPT E/M Dx Office Visit 12/19/2015 10:30a [facility] [place] 38393 R10.30 K92.1 Office Visit 08/15/2015 10:00a [facility] Office EDI [place] 20986 M77.12 Office Visit 01/14/2015 4:40p Main Office Lisa Ohara M.D. 85563 M25.552 F41.8 Office Visit 01/07/2015 2:20p [facility] Mahendra Kamara M.D. 72909 F41.1 Office Visit 01/02/2015 10:10a Main Office Mahendra Kamara M.D. 44076 I10 F41.1 Office Visit 12/26/2014 10:30a [place] [address] S90.02xA R11.0 Office Visit 12/12/2014 8:00a Main Office Mahendra Kamara M.D. 15392 401.9 300.00 437.3 780.52 Office Visit 11/13/2014 3:15p [facility] [place] 47392 917.8 401.9 437.3 300.00 E917.9 Office Visit 09/11/2014 3:50p Main Office Mahendra Kamara M.D. 32518 401.9 437.3 346.90 Office Visit 08/09/2014 10:20a [facility] Mahendra Kamara M.D. 65631 401.9 437.3 346.90 Office Visit 10/15/2013 11:20a Main Office Mahendra Kamara M.D. 47775 782.1 Office Visit 10/05/2013 3:00p [facility] Mahendra Kamara M.D. 11537 782.1 Office Visit 09/17/2013 2:45p [place] [address] 719.47 401.9 Office Visit 12/25/2012 2:40p Main Office Sen Mendiola M.D. 43068 569.49 Office Visit 12/13/2012 12:00p Main Office Mahendra Kamara M.D. 50791 401.9 V04.81 346.90 Plan of Care 08/30/2017 - Lisa Ohara M.D.R30.0 DysuriaNew Labs:Ua - Micro (Fma)Urine Culture & SensitivityComments:trial of premarin to urethral area x 1 mo ; if worsen for urology [id number] Essential (primary) hypertensionComments: The patient will continue to monitor blood pressure and let me know the blood pressure results if there are readings persistently above 140/80. Goal blood pressure is less than 140/80. Recommend low salt/cardiac diet and routine exercise.N95.1 Menopausal and female climacteric statesAllNew Medication: Premarin 0.625 mg/GMComments:~B_~U_Medication Management~b_~u_ Patient Understands medications she's taking? Yes No Are there Barriers to Adherence? Yes No Has the patient been asked about herbal supplements and therapies, and OTC meds? Yes No
--- NOTE | 2017-09-27 10:24 | ED ---
Lower Extremity - HPI Summary HPI Summary: 67F presents with left knee pain for the past 10 days. She states that has no swelling in the morning but in the afternoon the posterior aspect of her knee swells into her calf. She states it is painful. no fever or rash. no recent tick exposure. no weakness. no injury. has fam hx of blood clots. no chest pain or SOB. the knee is not giving out. is not a smoker. no recent travel. - History of Current Complaint Pain Intensity: 3 <Fauzia Barry - Last Filed: 09/27/17 11:56> <Miguel Corona - Last Filed: 09/27/17 12:00> - History of Current Complaint Chief Complaint: UCLowerExtremity Stated Complaint: L KNEE INJURY Time Seen by Provider: 09/27/17 10:09 - Allergies/Home Medications Allergies/Adverse Reactions: Allergies Allergy/AdvReac Type Severity Reaction Status Date / Time acetaminophen [From Percocet] Allergy Vomiting Verified 09/27/17 09:46 meperidine [From Demerol] Allergy Vomiting Verified 09/27/17 09:46 oxycodone [From Percocet] Allergy Vomiting Verified 09/27/17 09:46 PMH/Surg Hx/FS Hx/Imm Hx Endocrine/Hematology History: Reports: Other Endocrine/Hematological Disorders - NEGATIVE: HLD Denies: Hx Diabetes Cardiovascular History: Reports: Hx Hypertension Denies: Hx Coronary Artery Disease GI History: Reports: Hx Gastroesophageal Reflux Disease History: Denies: Hx Dialysis, Hx Renal Disease - Surgical History Surgery Procedure, Year, and Place: HYSTERECTOMY Infectious Disease History: No Infectious Disease History: Denies: History Other Infectious Disease, Traveled Outside the [place] in Last 30 Days - Family History Known Family History: Positive: Hypertension, Diabetes - Social History Alcohol Use: Occasionally Substance Use Type: Reports: None Smoking Status (MU): Never Smoked Tobacco <Fauzia Barry - Last Filed: 09/27/17 11:56> Review of Systems Negative: Fever Negative: Chest Pain Negative: Shortness Of Breath Positive: Edema - left knee All Other Systems Reviewed And Are Negative: Yes <Fauzia Barry - Last Filed: 09/27/17 11:56> Physical Exam Triage Information Reviewed: Yes Vital Signs On Initial Exam: Initial Vitals Temp Pulse Resp BP Pulse Ox 98 F 66 16 131/71 100 09/27/17 09:42 09/27/17 09:42 09/27/17 09:42 09/27/17 09:42 09/27/17 09:42 Vital Signs Reviewed: Yes Appearance: Positive: Well-Appearing Skin: Positive: Warm, Dry Head/Face: Positive: Normal Head/Face Inspection Eyes: Positive: Normal, Conjunctiva Clear ENT: Positive: Pharynx normal Respiratory/Lung Sounds: Positive: Clear to Auscultation, Breath Sounds Present Cardiovascular: Positive: Normal, RRR Musculoskeletal: Positive: Strength/ROM Intact - left knee, Other - neg ballotment, nontender knee, tenderness posterior knee, good pulses, capillary refill<2 secs, no laxity to joint. Negative: Alaina Sign Left, Edema Left Neurological: Positive: Normal Psychiatric: Positive: Normal <Fauzia Barry - Last Filed: 09/27/17 11:56> Vital Signs On Initial Exam: Initial Vitals Temp Pulse Resp BP Pulse Ox 98 F 66 16 131/71 100 09/27/17 09:42 09/27/17 09:42 09/27/17 09:42 09/27/17 09:42 09/27/17 09:42 <Miguel Corona - Last Filed: 09/27/17 12:00> Diagnostics - Vital Signs Vital Signs Temp Pulse Resp BP Pulse Ox 09/27/17 09:42 98 F 66 16 131/71 100 - Ultrasound No standard instances Ultrasound Interpretation: Positive (See Comments) - IMPRESSION: 1. NO EVIDENCE FOR DEEP VENOUS THROMBOSIS. 2. SLIGHTLY COMPLEX FRAZIER'S CYST. Ultrasound Interpretation Completed By: Radiologist <Fauzia Barry - Last Filed: 09/27/17 11:56> - Vital Signs Vital Signs Temp Pulse Resp BP Pulse Ox 09/27/17 09:42 98 F 66 16 131/71 100 <Miguel Corona - Last Filed: 09/27/17 12:00> Lower Extremity Course/Dx - Course Course Of Treatment: 67F presents with left knee pain for the past 10 days. She states that has no swelling in the morning but in the afternoon the posterior aspect of her knee swells into her calf. She states it is painful. no fever or rash. no recent tick exposure. no weakness. no injury. has fam hx of blood clots. no chest pain or SOB. the knee is not giving out. is not a smoker. no recent travel. on exam tenderness posterior aspect of knee. neg ballotment. full ROM knee. no warmth or erythema to joint. neurovascular intact. u/s shows popliteal cyst. patient has follow up with ortho on tuesday. will treat conservatively with rice. patient has dx of htn and is in pre-htn range so can follow up with primary about such. patient understand and agrees with plan. - Diagnoses Differential Diagnosis/HQI/PQRI: Positive: DVT, Septic Arthritis, Tendonitis, Other - frazier cyst <Fauzia Barry - Last Filed: 09/27/17 11:56> <Miguel Corona - Last Filed: 09/27/17 12:00> - Diagnoses Provider Diagnoses: Frazier cyst Discharge - Sign-Out/Discharge Documenting (check all that apply): Discharge/Admit/Transfer - Billing Disposition and Condition Condition: GOOD Disposition: Home <Fauzia Barry - Last Filed: 09/27/17 11:56> - Billing Disposition and Condition Condition: GOOD Disposition: Home <Miguel Corona - Last Filed: 09/27/17 12:00> - Discharge Plan Condition: Good Disposition: HOME Patient Education Materials: Bakers Cyst (ED) Referrals: Lisa Ohara MD [Primary Care Provider] - Isha Al MD [Medical Doctor] - Additional Instructions: Take Tylenol or ibuprofen every 6 hours as needed for pain Apply ice, rest, elevate Follow up with ortho Return to ED if develop any new or worsening symptoms Per institutional requirements, I have reviewed the chart, however, I was not consulted specifically or made aware of this patient by the above midlevel provider. I did not personally evaluate, interact with , or disposition this patient.
--- NOTE | 2017-09-27 11:47 | RAD ---
INDICATION: Left posterior knee calf swelling. COMPARISON: There are no prior studies available for comparison. TECHNIQUE: Multiple real-time, color flow and Doppler tracings of the left lower extremity were obtained. FINDINGS: The common femoral, femoral, profunda femoral and popliteal veins all demonstrate normal compressibility, augmentation with compression and phasic response with respiration. The posterior tibial and peroneal veins demonstrate normal compressibility and augmentation with compression. There is a slightly complex Frazier's cyst present measuring 2.1 x 5.3 x 1.0 cm. IMPRESSION: 1. NO EVIDENCE FOR DEEP VENOUS THROMBOSIS. 2. SLIGHTLY COMPLEX FRAZIER'S CYST.
== END 2017-09-27 11:53 | disposition home or self-care (01) ==
LOC: UCEAST 09:17
DX: M71.22 Synovial cyst of popliteal space [Baker], left knee (principal); I10 Essential (primary) hypertension; Z88.5 Allergy status to narcotic agent; Z88.8 Allergy status to other drugs, medicaments and biological substances
CPT/HCPCS: 99211; G0463